=== PATIENT | male | born 1975 | race Caucasian/White ===

== ENCOUNTER 2020-04-08 14:59 | Outpatient (CLI) | payer OTHER, SELFPAY ==
--- NOTE | ~2020-04-08 | CT_ITS ---
EXAMINATION: CT abdomen pelvis w con DATE: 04/08/2020 15:30 INDICATION: Right lower quadrant abdominal pain, tenderness for one month TECHNIQUE: Computed tomography (CT) of the abdomen and pelvis was performed with 100 cc Omnipaque 350 intravenous contrast. Automated exposure control and iterative reconstruction technique were employe d. Exam dose: 444.25 mGy-cm total exam DLP. COMPARISON: 06/22/2018 CT abdomen pelvis FINDINGS: Calcified right lower lobe pulmonary granuloma. No infiltrate or consolidation in the lower lung zones. There several lower lung very small opacities which are not likely of clinical significa nce. Heart size is within normal range. No pericardial or pleural effusion. Small sliding hiatal hernia. The gallbladder is contracted. Which may account for the appearance of some gallbladder wall thickeni ng. No pericholecystic fluid or stranding. No bile duct or pancreatic duct dilatation. No hepatic or splenic space-occupying mass lesion. There are calcified splenic granulomas consistent with old granulomatous disease. There is splenomegaly, spleen measuring approximately 14.4 cm vertica l dimension. No pancreatic mass lesion or calcification. Normal morphology of the adrenal glands. 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 Approximately 4 mm right renal cyst. The kidneys are otherwise unremarkable. No urinary tract calculu s or hydroureteronephrosis. There is prostate enlargement. There is diffuse prominent thickening of the urinary bladder wall, pos sibly secondary to bladder outlet obstruction. Cystitis is not excluded. Normal caliber of the abdominal aorta. No intraperitoneal or retroperitoneal or pelvic mass lesion or adenopathy or ascites. Normal appendix. No bowel obstruction, bowel wall thickening, pneumatosis or intraperitoneal free air . There are scattered colonic diverticula primarily of the sigmoid colon; no CT evidence of diverticu litis. Small fat-containing umbilical hernia. Bilateral hip osteoarthritis. No suspicious osteolytic or osteoblastic lesions are noted. IMPRESSION: Splenomegaly Normal appendix Duplicated right kidney and ureter; no urinary tract obstruction or hydronephrosis Prostate enlargement, possibly responsible for diffuse prominent thickening of the urinary bladder wa ll. Consider urinalysis to exclude cystitis. Small sliding hiatal hernia Diverticulosis of the colon; no CT evidence of diverticulitis Reviewed, dictated and finalized at [facility]. Reviewed, dictated and finalized at [facility]. DRIVER IMPRESSION: Splenomegaly Normal appendix Duplicated right kidney and ureter; no urinary tract obstruction or hydronephro sis Prostate enlargement, possibly responsible for diffuse prominent thickening of the urinary bladder wall. Consider urinalysis to exclude cystitis. Small sliding hiatal hernia Diverticulosis of the colon; no CT evidence of diverticulitis
[2020-04-08 16:32] LABS: Basophils Percent Auto 0.5 % (0.2-1.2); Eosinophils Absolute Auto 0.4 K/mm3 (0-0.3); Eosinophils Percent Auto 5.9 % (0-4.4); Hematocrit 48.3 % (42.0-52.0); Hemoglobin 16.6 g/dL (14.0-18.0); Immature Granulocyte Absolute 0.02 K/mm3 (0.00-0.031); Immature Granulocyte Percent A 0.3 % (0-0.5); Lymphocytes Absolute Auto 1.62 K/mm3 (0.9-3.2); Lymphocytes Percent Auto 26.3 % (18.3-44.2); Mean Corpuscular HGB Conc 34.4 g/dl (32-36); Mean Corpuscular Hemoglobin 30.1 pg (26-34); Mean Corpuscular Volume 87.5 fl (80-100); Mean Platelet Volume 10.5 fl (7.4-10.4); Monocytes Absolute Auto 0.3 K/mm3 (0.1-0.6); Monocytes Percent Auto 5.2 % (2.6-8.5); Neutrophils Absolute Auto 3.8 K/mm3 (1.3-6.7); Neutrophils Percent Auto 61.8 % (45.5-73.1); Platelet Count Result 214 k/mm3 (150-375); Red Blood Count 5.52 M/mm3 (4.6-6.20); Red Cell Distribution Width 11.9 % (11.5-14.5); White Blood Count 6.2 K/mm3 (4.5-10.0)
[2020-04-08 16:46] LABS: Potassium 4.3 mmol/L (3.4-5.0)
[2020-04-08 16:49] LABS: Alanine Aminotransferase 30 U/L (4-50); Albumin Level 4.5 g/dL (3.5-5.1); Alkaline Phosphatase 64 U/L (38-126); Anion Gap 7 mmol/L (8-16); Aspartate Amino Transferase 28 U/L (17-59); Bilirubin,Total 0.4 mg/dL (0.2-1.3); Blood Urea Nitrogen 16 mg/dL (9-20); Calcium 9.5 mg/dL (8.4-10.2); Carbon Dioxide 30 mmol/L (22-30); Chloride 100 mmol/L (98-107); Estimated Glomerular Filt Rate > 60; Glucose 90 mg/dL (75-110); Sodium 137 mmol/L (137-145)
[2020-04-08 16:53] LABS: Cholesterol 160 mg/dL (0-200); HDL Direct 42 mg/dL; Triglycerides 150 mg/dL (<150)
[2020-04-08 17:05] LABS: LDL Cholesterol Direct 105 mg/dL
[2020-04-08 17:25] LABS: Prostate Specific Antigen 1.4 ng/mL (< OR = 4.0)
== END 2020-04-08 15:00 | disposition home or self-care (01) ==
PROVIDERS: Physician Assistant Medical; PCP Family Medicine; Visit Provider Nurse Practitioner Family
DX: R10.31 Right lower quadrant pain (principal); R10.813 Right lower quadrant abdominal tenderness; R25.1 Tremor, unspecified; Z12.5 Encounter for screening for malignant neoplasm of prostate; R16.1 Splenomegaly, not elsewhere classified; Q63.0 Accessory kidney; N40.0 Benign prostatic hyperplasia without lower urinary tract symptoms; K44.9 Diaphragmatic hernia without obstruction or gangrene; K57.90 Diverticulosis of intestine, part unspecified, without perforation or abscess without bleeding
CPT/HCPCS: 36415; 74177; 80053; 80061; 82607; 84153; 85025; Q9967

== ENCOUNTER 2021-11-18 10:36 | Outpatient (CLI) | payer OTHER, SELFPAY ==
--- NOTE | ~2021-11-18 | US_ITS ---
US abdomen complete DATE: 11/18/2021 11:10 INDICATION: Abdominal pain TECHNIQUE: Real-time imaging and Doppler analysis of the abdomen COMPARISON: 04/08/2020 CT abdomen pelvis FINDINGS: Normal hepatopedal portal venous flow direction. No hepatic space-occupying mass lesion is evident. No gallstones or gallbladder wall thickening or abnormal pericholecystic fluid collection. Negative s onographic Simental's sign. The common bile duct measures 5.3 mm, within normal range. No pancreatic mass lesion is evident. No renal mass lesion or hydronephrosis. Splenic size is within normal range. No abdominal aortic aneurysm. The inferior vena cava is unremarkable. IMPRESSION: No significant abnormality Reviewed, dictated and finalized at [facility]. Reviewed, dictated and finalized at [facility]. IMPRESSION: No significant abnormality
[2021-11-18 11:32] LABS: Basophils Percent Auto 0.5 % (0.2-1.2); Eosinophils Absolute Auto 0.1 K/mm3 (0-0.3); Eosinophils Percent Auto 2.8 % (0-4.4); Hematocrit 50.2 % (42.0-52.0); Hemoglobin 17.2 g/dL (14.0-18.0); Immature Granulocyte Absolute 0.01 K/mm3 (0.00-0.031); Immature Granulocyte Percent A 0.3 % (0-0.5); Lymphocytes Absolute Auto 1.17 K/mm3 (0.9-3.2); Mean Corpuscular HGB Conc 34.3 g/dl (32-36); Mean Corpuscular Hemoglobin 29.9 pg (26-34); Mean Corpuscular Volume 87.2 fl (80-100); Mean Platelet Volume 10.7 fl (7.4-10.4); Monocytes Absolute Auto 0.3 K/mm3 (0.1-0.6); Monocytes Percent Auto 7.4 % (2.6-8.5); Neutrophils Absolute Auto 2.3 K/mm3 (1.3-6.7); Platelet Count Result 185 k/mm3 (150-375); Red Blood Count 5.76 M/mm3 (4.6-6.20); Red Cell Distribution Width 12.5 % (11.5-14.5); White Blood Count 3.9 K/mm3 (4.5-10.0)
[2021-11-18 11:50] LABS: Alanine Aminotransferase 22 U/L (6-50); Albumin Level 4.8 g/dL (3.5-5.1); Alkaline Phosphatase 62 U/L (38-126); Anion Gap 11 mmol/L (8-16); Aspartate Amino Transferase 22 U/L (17-59); Bilirubin,Total 0.6 mg/dL (0.2-1.3); Blood Urea Nitrogen 13 mg/dL (9-20); Calcium 9.2 mg/dL (8.4-10.2); Carbon Dioxide 27 mmol/L (22-30); Chloride 100 mmol/L (98-107); Estimated Glomerular Filt Rate > 60; Glucose 91 mg/dL (65-110); Potassium 4.3 mmol/L (3.4-5.0); Sodium 138 mmol/L (137-145)
[2021-11-18 12:17] LABS: Prostate Specific Antigen 1.8 ng/mL (< OR = 4.0)
[2021-11-22 12:24] LABS: Testosterone Total 773 ng/dL (250-1100)
[2021-11-23 02:20] LABS: Testosterone Free 72.9 pg/mL (46.0-224.0)
== END 2021-11-18 10:37 | disposition home or self-care (01) ==
LOC: ANHIMG 10:39
PROVIDERS: PCP Family Medicine; Visit Provider Nurse Practitioner Family
DX: R10.9 Unspecified abdominal pain (principal)
CPT/HCPCS: 36415; 76700; 80053; 82306; 82607; 84153; 84402; 84403; 84443; 85025; G0103

== ENCOUNTER 2022-08-08 10:32 | Emergency (ER) | payer OTHER, SELFPAY ==
[2022-08-08] VITALS (11 sets, daily range): BP systolic 118–146; BP diastolic 90–98; PULSE 61–77; RESP 11–18; TEMP 36.3; O2SAT 97–100
--- NOTE | ~2022-08-08 | XR_ITS ---
Clinical Indication: Chest pain PA and lateral views of the chest: Comparison: 06/14/2006 Findings: The lungs are clear, without evidence of focal consolidation or pleural effusion. Cardiome diastinal silhouette is within normal limits. Bones and soft tissues are unremarkable. Impression: Normal chest. Reviewed, dictated and finalized at location . Impression: Normal chest.
--- NOTE | 2022-08-08 10:34 | ECG_ITS ---
Measurements Intervals [place] Rate: 70 P: 61 CT: 128 QRS: 62 QRSD: 114 T: 47 QT: 376 QTc: 406 Interpretive Statements SINUS RHYTHM POSSIBLE LEFT ATRIAL ENLARGEMENT INTRAVENTRICULAR CONDUCTION DELAY BORDERLINE ECG NO PREVIOUS ECG AVAILABLE FOR COMPARISON Electronically Signed On 08-08-2022 11:27:20 CDT by Chuy Clarke D.O.
[2022-08-08] MEDS: ASPIRIN 81 MG CHEWABLE TABLET 324 MG PO (11:30)
[2022-08-08 11:37] LABS: Basophils Percent Auto 0.5 % (0.2-1.2); Eosinophils Absolute Auto 0.1 K/mm3 (0-0.3); Eosinophils Percent Auto 3.1 % (0-4.4); Hematocrit 47.1 % (42.0-52.0); Hemoglobin 16.2 g/dL (14.0-18.0); Immature Granulocyte Absolute 0.01 K/mm3 (0.00-0.031); Immature Granulocyte Percent A 0.2 % (0-0.5); Lymphocytes Absolute Auto 1.19 K/mm3 (0.9-3.2); Lymphocytes Percent Auto 28.8 % (18.3-44.2); Mean Corpuscular HGB Conc 34.4 g/dl (32-36); Mean Corpuscular Hemoglobin 30.2 pg (26-34); Mean Corpuscular Volume 87.7 fl (80-100); Mean Platelet Volume 10.2 fl (7.4-10.4); Monocytes Absolute Auto 0.3 K/mm3 (0.1-0.6); Neutrophils Absolute Auto 2.5 K/mm3 (1.3-6.7); Neutrophils Percent Auto 59.4 % (45.5-73.1); Platelet Count Result 167 k/mm3 (150-375); Red Blood Count 5.37 M/mm3 (4.6-6.20); Red Cell Distribution Width 12.5 % (11.5-14.5); White Blood Count 4.1 K/mm3 (4.5-10.0)
--- NOTE | 2022-08-08 11:39 | ED.CHESTPAIN ---
HPI - Chest Pain General Chief Complaint: Chest Pain Stated Complaint: chest pain x3 days Time Seen by Provider: 08/08/22 10:51 History of Present Illness HPI narrative: Pt reports chest pain that radiated to his left arm last night, and the one episode of midsternal chest this morning, all resolved now. He was anxious that there was something going on with his heart, his mother had a CABG recently but other than that no cardiac history personally. Does not smoke. Related Data Home Medications Medication Instructions Recorded Confirmed Saccharomyces boulardii 250 mg 250 mg PO DAILY 04/28/21 11/18/21 capsule (Florastor) Allergies Allergy/AdvReac Type Severity Reaction Status Date / Time No Known Allergies Allergy Verified 08/08/22 11:24 Review of Systems Review of Systems: CONST: No fever. HEENT: No sore throat C/V: Chest pain RESP: No cough GI: No abdominal pain : No dysuria. M/S: No joint pain. SKIN: No rash. NEURO: [No headache or focal numbness or weakness] PSYCH: [No depression] [facility] Past Medical History Medical History Blindness of right eye BMI 26.0-26.9,adult Urethra disorder Surgical History Surgical History History of eye surgery 1988 Family History Family History Grandparent Hypertension Carcinoma of colon Mother No problems noted. Father No problems noted. Sibling No problems noted. 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 EYES: EOMI, conjunctiva normal ENT: Hearing grossly intact LUNGS: Nonlabored breathing. CTAB HEART: [Regular rate and rhythm] ABD: [Soft], [nontender to palpation] EXT: Normal range of motion SKIN: [No rashes or lesions.] NEURO: [Alert and oriented x 3. No gross focal sensory or strength deficits.] PSYCH: Normal affect Course Vital Signs Vital signs: Vital Signs Temperature 97.4 F L 08/08/22 10:40 Pulse Rate 72 08/08/22 10:40 Respiratory Rate 14 08/08/22 10:40 Blood Pressure 146/98 H 08/08/22 10:40 Pulse Oximetry 100 08/08/22 10:40 Oxygen Delivery Room Air 08/08/22 10:40 Temperature 97.4 F L 08/08/22 10:40 Pulse Rate 72 08/08/22 13:14 Respiratory Rate 18 08/08/22 13:14 Blood Pressure 118/90 08/08/22 13:14 Pulse Oximetry 97 08/08/22 13:14 Oxygen Delivery Room Air 08/08/22 10:40 MDM - Chest Pain MDM Narrative Medical decision making narrative: ED COURSE AND MEDICAL DECISION MAKINyoM presenting with chest pain. EKG done in triage negative for acute ischemic changes. Cardiac workup is initiated. EKG - 12-Lead: Performed at 1039. Interpreted by me. [Sinus rhythm]. Rate 70. [Normal] axis. DE-interval [normal]. QRS duration [normal]. QTc [normal]. [No ST segment elevation or depression]. [T-wave normal]. Impression: No EKG evidence of acute ischemia or dysrhythmia. Chest x-ray dependently viewed and interpreted by myself, no obvious consolidations or pneumothorax. HEART score is 0 with no acute ischemic changes on EKG and negative tro
[2022-08-08 11:43] LABS: Alanine Aminotransferase 41 U/L (6-50); Albumin Level 4.7 g/dL (3.5-5.1); Alkaline Phosphatase 60 U/L (38-126); Anion Gap 4 mmol/L (8-16); Aspartate Amino Transferase 28 U/L (17-59); Bilirubin,Total 0.6 mg/dL (0.2-1.3); Blood Urea Nitrogen 13 mg/dL (9-20); Calcium 9.2 mg/dL (8.4-10.2); Carbon Dioxide 30 mmol/L (22-30); Chloride 103 mmol/L (98-107); Estimated CRCL calculation 70 ml/min; Estimated Glomerular Filt Rate > 60; Glucose 94 mg/dL (65-110); Lipase 64 U/L (23-300); Potassium 4.1 mmol/L (3.4-5.0); Sodium 137 mmol/L (137-145)
[2022-08-08 11:49] LABS: Partial Thromboplastin Time 26.1 SECONDS (22.3-36.8); Prothrombin Time 13.5 Seconds (11.1-14.7)
[2022-08-08 11:54] LABS: Troponin I < 0.012 ng/mL (0.000-0.034)
== END 2022-08-08 13:15 | disposition home or self-care (01) ==
PROVIDERS: Emergency Provider Emergency Medicine; PCP Family Medicine
DX: R07.2 Precordial pain (principal); Z87.891 Personal history of nicotine dependence
CPT/HCPCS: 36415; 71046; 80053; 83690; 84484; 85025; 85610; 85730; 93005; 99284; A9270